=== PATIENT | female | born 1980 | race African-American/Black ===

== ENCOUNTER 2017-05-09 11:26 | Emergency (ER) | payer MEDICAID, SELFPAY | END 2017-05-09 15:43 | disposition home or self-care (01) | PROVIDERS: Emergency Provider Emergency Medicine; Family Provider Nurse Practitioner Family; Visit Provider Emergency Medicine | DX: J11.1 Influenza due to unidentified influenza virus with other respiratory manifestations (principal); F17.210 Nicotine dependence, cigarettes, uncomplicated; I10 Essential (primary) hypertension; Z79.899 Other long term (current) drug therapy | CPT/HCPCS: 36415; 71020; 80053; 84484; 85025; 87070; 87430; 87486; 87581; 87633; 87798; 93005; 93041; 99283 ==

== ENCOUNTER → 2017-08-09 08:51 | Outpatient (CLI) | payer MEDICAID, SELFPAY ==
[2017-08-09 09:24] LABS: Basophils % 0.3 % (0.1-2.0); Eosinophils # 0.2 K/mm3 (0.0-0.4); Hematocrit 44.3 % (37.0-47.0); Hemoglobin 14.2 g/dL (12.2-16.2); Lymphocytes % 34.5 K/mm3 (10-50); Mean Corpuscular HGB Conc 32.1 g/dL (31.8-35.4); Mean Corpuscular Hemoglobin 29.1 pg (27.0-31.2); Mean Corpuscular Volume 90.6 fl (81-99); Mean Platelet Volume 8.7 fl (7.4-10.4); Monocytes # 0.2 K/mm3 (0.1-1.0); Monocytes % 4.2 % (1.7-9.3); Neutrophils # 3.4 K/mm3 (1.8-7.8); Neutrophils % 58.1 % (37.0-80.0); Platelet Count 225 K/mm3 (142-424); Red Blood Count 4.89 M/mm3 (4.20-5.40); Red Cell Distribution Width 14.1 % (11.5-17.5); White Blood Count 5.8 K/mm3 (4.8-10.8)
[2017-08-09 09:45] LABS: Anion Gap 11.3 mEq/L (5-15); Blood Urea Nitrogen 12 mg/dL (7-18); Carbon Dioxide 26 mmol/L (21.0-32.0); Chloride 107 mmol/L (98-107); Creatinine,Serum 0.76 mg/dL (0.55-1.02); Estimated Glomerular Filt Rate 86 ml/min (>60); Free Thyroxine Index 2.7 ug/dL (5.93-13.13); GFR (African American) 104 ML/MIN (>60); Glucose 95 mg/dL (74-106); Potassium 3.3 mmoL/L (3.5-5.1); Sodium 141 mmol/L (136-145); T4 (Thyroxine) 7.8 ug/dl (4.7-13.3); Thyroid Stimulating Hormone 2.11 uIU/ml (0.358-3.740); Triiodothryronine (T3) Uptake 35 % (31-39)
[2017-08-11 09:28] LABS: FSH 7.4 mIU/mL (.); LH 6.3 mIU/mL (.)
== END ==
PROVIDERS: Family Provider Nurse Practitioner Family; PCP Nurse Practitioner Family; Visit Provider Nurse Practitioner Obstetrics & Gynecology
DX: N93.9 Abnormal uterine and vaginal bleeding, unspecified (principal)
CPT/HCPCS: 36415; 80048; 83001; 83002; 84436; 84443; 84479; 85025

== ENCOUNTER → 2017-08-12 10:28 | Outpatient (CLI) | payer MEDICAID, SELFPAY ==
--- NOTE | 2017-08-12 10:30 | US_ITS ---
US transvaginal HISTORY: ITS.REASON: Abnormal Vaginal Bleeding ORDERING PHYSICIAN: Quan Dahl MD PATIENT AGE: 37 years COMPARISON: None FINDINGS: The uterus is retroverted measuring 8 x 5 x 6 cm with a combined endometrial thickness of 12 mm. There is a small amount of fluid within the uterine canal. The left ovary is 3.3 x 1.6 x 2.3 cm and contains multiple small follicles. The right ovary is 3 x 2 cm and contains multiple small follicles. There are bilateral Essure devices noted in the cornu of the uterus. Small amount fluid is present in the cul-de-sac. IMPRESSION: 1. Retroverted uterus with mildly thickened endometrium and a small amount of fluid in the endometrial canal 2. Bilateral Essure devices noted. 3. Small amount fluid in the cul-de-sac
== END ==
PROVIDERS: Family Provider Nurse Practitioner Family; PCP Nurse Practitioner Family; Visit Provider Nurse Practitioner Obstetrics & Gynecology
DX: N92.6 Irregular menstruation, unspecified (principal)
CPT/HCPCS: 76830

== ENCOUNTER → 2018-05-02 13:43 | Outpatient (CLI) | payer MEDICAID, SELFPAY ==
--- NOTE | 2018-05-02 | CA_ITS ---
PROCEDURE: 2-D M-mode and color Doppler study INDICATIONS FOR THE TEST: Chest pain+ COPD Heart Murmur Tobacco Smoking+ Palpitations+ Fatigue+ Syncope Edema+ Hypertension+Diabetes Mellitus Rheumatic Fever SOB MCMILLAN+Obesity Hyperlipidemia Family History HD+ Additional History family history of CAD, sister at 42 from CHF PATIENT INFORMATION HEIGHT: 64 WEIGHT: 155 GENDER: Female B/P: 122/90 2-D/M-MODE INTERPRETATION: 2-D MEASUREMENTS OBSERVED VALUES IN CMS Right Ventricular Dimension (RVDd) 2.0 Interventricular Septum (Thickness)(IVsd) 0.7 Left Ventricular Internal Dimensions(LVIDd) 4.4 Left Ventricular Posterior Wall (Thickness)(LVPWd) 0.7 Aortic Root 2.7 Aortic Cusp Separation 2.0 Left Atrial Dimensions (LAD) 2.4 2D 1. Left atrium is normal size, left ventricle is normal size, there is no concentric left ventricular hypertrophy, visually estimated ejection fraction 55% with no regional wall motion abnormality. 2. The right atrium and right ventricle are normal size and contractility. 3. The aortic, mitral and tricuspid valvular grossly normal. 4. The pulmonic valve is poorly visualized. 5. No significant pericardial effusion noted. DOPPLER INTERROGATION: Doppler interrogation of the aortic, mitral and tricuspid valvular presence of mild mitral and tricuspid regurgitation, tricuspid regurgitation jet velocity is inadequate for calculation of the right ventricular systolic pressure, diastolic parameters are within normal range. CONCLUSION: 1. Normal left ventricular size, preserved left ventricular systolic function, visually estimated ejection 5% with no regional wall motion abnormality, diastolic parameters are within normal range. 2. Mild mitral and tricuspid regurgitation 3. No significant pericardial effusion noted.
== END ==
PROVIDERS: PCP Internal Medicine Adolescent Medicine; Visit Provider Nurse Practitioner Family
DX: I10 Essential (primary) hypertension (principal); Z72.0 Tobacco use; Z82.49 Family history of ischemic heart disease and other diseases of the circulatory system
CPT/HCPCS: 93306

== ENCOUNTER 2018-05-29 06:27 | Observation (INO) ==
--- NOTE | 2018-05-29 07:33 | Progress Note ---
[facility] Anesthesia Checklist - Structural Data Admitted From: Home Planned Operative Procedure/s: [facility] Consent for Planned Operative Procedure(s) Verified: Yes - Airway Assessment C-Spine Mobility Assessed: Yes TMJ Mobility Assessed: Yes Dentition: Good Dentition - Neurological Assessment Level of Consciousness: Awake, Alert, Appropriate - Anesthesia Plan Anesthesia Risk discussed: Yes Anesthesia Plan: Verified ASA Class: II Anesthesia Type: General [facility] History I have reviewed the patient's past medical history: Yes Medical History: Reports:: Hypertension, Migraine, Seizures (10 YEARS AGO) Denies:: Anxiety, Asthma, Cancer, Depression, Diabetes Mellitus Type 1, Diabetes Mellitus Type 2, Internal Pacemaker, MRSA Other Medical History: Denies: Blood Transfusion Reaction Other Surgeries: Yes: Tubal Ligation. No: Pacemaker Amputation: No Fractures: No - *Social History Educational Level: Attended College Smoking Status: Former smoker Tobacco Type: cigarettes Alcohol Intake: never Alcohol Intake Frequency:: holidays/special occasions only Substance Use Type: denies use Occupational Status: employed Housing: house Household Members: children - Psychiatric History Expresses thoughts of harming self/others: None Suicide Plan Description: No Plan Pschychiatric History:: Denies:: Anxiety, Depression *Family Hx:: Cancer, Diabetes, Heart Attack, Stroke, Hypertension, Hyperlipidemia, Anemia
[2018-05-29 07:43] LABS: Basophils % 0.3 % (0.1-2.0); Eosinophils # 0.2 K/mm3 (0.0-0.4); Eosinophils % 3.5 % (0.1-12.0); Hemoglobin 14.8 g/dL (12.2-16.2); Lymphocytes % 46.5 % (10-50); Mean Corpuscular HGB Conc 31.6 g/dL (31.8-35.4); Mean Corpuscular Hemoglobin 28.9 pg (27.0-31.2); Mean Corpuscular Volume 91.5 fl (81-99); Mean Platelet Volume 8.2 fl (7.4-10.4); Monocytes # 0.3 K/mm3 (0.1-1.0); Monocytes % 5.2 % (1.7-9.3); Neutrophils # 2.9 K/mm3 (1.8-7.8); Neutrophils % 44.5 % (37.0-80.0); Platelet Count 266 K/mm3 (142-424); Red Blood Count 5.13 M/mm3 (4.20-5.40); Red Cell Distribution Width 13.5 % (11.5-17.5); White Blood Count 6.5 K/mm3 (4.8-10.8)
[2018-05-29 08:00] LABS: Albumin Level 3.7 gm/dL (3.4-5.0); Anion Gap 14.8 mEq/L (5-15); Bilirubin,Total 0.4 mg/dL (0.2-1.0); Calcium 8.9 mg/dL (8.5-10.1); Globulin 3.8 gm/dl (1.3-3.2); Potassium 3.8 mmoL/L (3.5-5.1); Total Protein,Serum 7.5 gm/dL (6.4-8.2)
--- NOTE | 2018-05-29 11:09 | Progress Note ---
[facility] Anesthesia Record Part II Discharge Time: 11:40 Destination: floor PACU nurse assessment reviewed?: Yes Patient Condition:: Good Anesthesia Complications:: None
--- NOTE | 2018-05-29 11:09 | Progress Note ---
[facility] Anesthesia Record Part I Intake, IV Amount: 2,200 Estimated blood loss (mL): 200 Urine output (mL): 125 Blood Pressure: 111/65 SaO2: 100 Pulse Rate: 60 Respiratory Rate: 12 Temperature: 98.6 F Patient is:: Awake, Stable Stable to PACU at:: 11:10
[2018-05-30 07:27] LABS: Hematocrit 34.7 % (37.0-47.0)
[2018-05-30 07:37] LABS: Hemoglobin 11.5 g/dL (12.2-16.2)
--- NOTE | 2018-05-30 09:06 | Pharmacy Consult Notes ---
[facility] Pharmacy VTE Monitoring - Patient Demographics Admission date: 05/30/18 Report Date: 05/30/18 Time: 09:06 Allergies/Adverse Reactions: Patient Allergies No Known Allergies Allergy (Verified 05/29/18 07:00) Height: 1.65 m Weight: 69.853 kg - VTE Risk Labs: VTE Related Lab Results Hgb 11.5 g/dL (12.2-16.2) L D 05/30/18 06:20 Hct 34.7 % (37.0-47.0) L 05/30/18 06:20 Plt Count 266 K/mm3 (142-424) 05/29/18 07:09 BUN 17 mg/dL (7-18) 05/29/18 07:09 Creatinine 0.87 mg/dL (0.55-1.02) 05/29/18 07:09 Estimated Creat Clear 99 mL/min (50-200) 05/29/18 07:09 Clinical Trial Participant: No - Prophylaxis VTE Prophylaxis Ordered?: Yes Types of VTE Prophylaxis: IPCS Knee High
--- NOTE | 2018-05-30 09:37 | Discharge Summary ---
General - General Admission date:: 05/29/18 Discharge date: 05/30/18 HPI HPI: HMB, DUB and pelvic pain, admitted for surgical management with LAVH Postop course uneventful Yannick regular diet, ambulating and voiding without difficulty Discharged home on POD #1 Hospital Course Hospital Course: as per HPI Rhogam Administration: Not Indicated Objective Vital signs: Temp Pulse Resp BP Pulse Ox 98.3 F 76 18 98/75 L 100 05/30/18 08:10 05/30/18 08:10 05/30/18 08:10 05/30/18 08:10 05/30/18 08:10 Narrative: CONSTITUTIONAL: no acute distress HEENT: mucous membranes moist PULMONARY: breathing unlabored without audible wheezes CV: no tachycardia or visible JVD; normal LE peripheral pulses ABD: soft, NT/ND, no guarding SKIN: incisions dry/intact with no drainage, erythema or induration EXT: 1+ edema LEs NEURO: alert/oriented, no altered mental status PSYCH: appropriate mood and demeanor without visible anxiety/depression Results Labs on day of discharge: Labs from last 24 hours 05/30/18 05/29/18 06:20 Unknown Hgb 11.5 L D Hct 34.7 L Urine Color Yellow Urine Appearance Sl cloudy Urine pH 6.0 Ur Specific [place] 1.020 Urine Protein Negative Urine Glucose (UA) Negative Urine Ketones Negative Urine Blood Trace-l Urine Nitrate Negative Urine Bilirubin Negative Urine Urobilinogen 0.2 Ur Leukocyte Esterase Negative Urine RBC Occasional Urine WBC Occasional Ur Squamous Epith Cells 3-5 Urine Bacteria 3+ A DS: Diagnosis - Discharge Diagnosis (1) Abnormal uterine bleeding Status: Acute (2) Heavy menstrual bleeding Status: Acute (3) Severe dysmenorrhea Status: Acute Discharge Plan - Patient Discharge Instructions ACTIVITY: Limited activity Additional Instructions: No heavy lifting, no driving while on pain medication and nothing in the vagina for 6 weeks. Patient Instructions: How to Care for a Surgical Wound, DI for Postoperative Pain, Hysterectomy -- Laparoscopic Surgery - Follow up Plan Follow up with: Angelica Rebollar MD [Staff Physician] - 2 weeks Disposition: Home, Self-Group Home Medications: Home Medications Medication Instructions Recorded Confirmed Type bisoprolol 5 5 - 6.25 mg PO BID 30 Days #30 08/17/17 05/29/18 History mg-hydrochlorothiazide 6.25 mg tablet cetirizine 10 mg tablet 1 tab PO DAILY 30 Days #30 08/17/17 05/29/18 History fluticasone 50 mcg/actuation nasal 1 spray INTRANASAL DAILY 30 Days 08/17/17 05/30/18 History spray,suspension #16 triamcinolone acetonide 0.1 % 1 cream TOPICAL TID 14 Days #80 08/17/17 05/29/18 History topical ointment Etonogestrel [Nexplanon] 1 implant SUBDERMAL ONCE 05/29/18 05/29/18 History Lisinopril [Lisinopril 20mg Tab] 20 mg PO DAILY 05/29/18 05/29/18 History hydroCHLOROthiazide [HCTZ 25mg 25 mg PO DAILY 05/29/18 05/29/18 History tab] Amlodipine Besylate 5 mg PO DAILY 05/30/18 05/30/18 History Oxycodone HCl [OxyIR 5mg tablet] 5 mg PO Q4HP PRN #30 tab 05/30/18 Rx Prescriptions/Medication Reconciliation: New Oxycodone HCl [OxyIR 5mg tablet] 5 mg PO Q4HP PRN #30 tab PRN Reason: MODERATE TO SEVERE PAIN Continue triamcinolone acetonide 0.1 % topical ointment 1 cream TOPICAL TID 14 Days #80 bisoprolol 5 mg-hydrochlorothiazide 6.25 mg tablet 5 - 6.25 mg PO BID 30 Days #30 fluticasone 50 mcg/actuation nasal spray,suspension 1 spray INTRANASAL DAILY 30 Days #16 cetirizine 10 mg tablet 1 tab PO DAILY 30 Days #30 Lisinopril [Lisinopril 20mg Tab] 20 mg PO DAILY Amlodipine Besylate 5 mg PO DAILY hydroCHLOROthiazide [HCTZ 25mg tab] 25 mg PO DAILY Etonogestrel [Nexplanon] 1 implant SUBDERMAL ONCE
--- NOTE | 2018-05-31 18:03 | Operative Note ---
Date of procedure: 05/29/18 Pre-op Diagnosis:: 1. HMB 2. DUB 3. Pelvic pain 4. Failed endometrial ablation 5. Previous Essure Post-op Diagnosis:: 1. HMB 2. DUB 3. Pelvic pain 4. Failed endometrial ablation 5. Previous Essure Procedure performed:: SHANNON Surgeon:: Angelica Rebollar MD [place]anning Solution Maker(s):: Quan Dahl MD Anesthesia: GETA Estimated blood loss (mL): 200 Operative findings:: grossly normal ovaries bilaterally grossly normal uterus filshie clips x 2 bilateral fallopian tubes Operative note:: The patient was taken to the operating room and general anesthesia was administered. She was prepped/draped in lithotomy position. A uterine manipulator was placed without difficulty. Gloves were changed and attention was turned to the abdomen. A 11mm skin incision was made in the umbilical fold and the verees needle was inserted through the peritoneum and into the abdominal cavity in standard fashion. The abdomen was insufflated with CO2 gas. A 11mm non-bladed trocar was inserted directly into the abdominal cavity and appropriate placement was confirmed with the laparoscope. No intra-abdominal injuries occurred during entry into the abdominal cavity, as confirmed visually with the laparoscope. The patient was placed in trendelenburg and a 5mm skin incision was made 2cm above the pubic symphysis. A 5 mm non-bladed trocar was inserted under direct visualization, without complication. The uterus was elevated out of the pelvis in order to better visualize the anatomy. A survey of the pelvis and abdomen revealed the findings noted above. 5mm skin incisions were made in the right and left lower quadrants and a non-bladed trocars were inserted under direct visualization, without complication. The pelvis was evaluated; no fibroids or other visible uterine lesions were noted. Ovaries appeared normal and previous filshie clips were present on both tubes. The round ligaments were taken down using the harmonic scalpel. The anterior lip of the broad ligament was dissected medially on both sides and the bladder flap was created digitally. The posterior leaf of the broad ligament was dissected until the ureters were able to be identified on either side and noted to be free of the forthcoming adnexal pedicles. Infundibulopelvic ligaments were taken down with the harmonic scalpel, with excellent hemostasis noted. The uterine arteries were skeletonized on either side and taken down with the harmonic scalpel, with excellent hemostasis. The bladder flap was further bluntly dissected off the lower uterine segment with excellent hemostasis and without injury to the bladder. At this time, attention was turned to the vagina and the humi was removed. The cervix was injected superficially circumferentially with 1% lidocaine with epinephrine (15cc). The posterior cul-de-sac was entered without complication, and the anterior space was also entered without injury to the bladder. The cardinal and uterosacral ligaments were clamped transected and suture ligated on both sides until the specimen was free and removed vaginally. The posterior vaginal cuff was reapproximated for hemostasis. The pelvic peritoneum was closed with 2-0 PDS. The vaginal cuff was closed with 0 Vicryl interrupted sutures. Gloves were changed and attention was turned back to the laparoscopy. The abdomen was reinsufflated and the pelvis was assessed. All pedicles appeared hemostatic. The pelvis was copiously irrigated with a solution of sterile water. The cuff was hemostatic. All pedicles were reexamined and remained hemostatic. The abdomen was then evacuated of gas and all trocars removed. The skin incisions were closed with 4-0 monocryl and dermabond. The patient tolerated the procedure well; sponge/lap/needle and instrument counts were correct 2. She was taken to the recovery room awake in stable condition. Estimated blood loss: 200 cc. Condition: stable Disposition: PACU Specimens:: Uterus and cervix Complications:: none
== END 2018-05-30 10:25 | disposition home or self-care (01) ==
LOC: OR 06:27 → OB 12:09 → INTOOBSV 12:09
PROVIDERS: ADMIT Obstetrics & Gynecology; ATTEND Obstetrics & Gynecology
CPT/HCPCS: 36415; 80053; 81001; 84703; 85014; 85018; 85025; 87086; 96374; G0378; J0131; J2405; J2710

== ENCOUNTER 2022-02-10 08:48 | Emergency (ER) | payer OTHER, SELFPAY ==
[2022-02-10 09:05] VITALS: BP 131/87; PULSE 100; RESP 20; TEMP 37.6; O2SAT 100; BMI 28.4
[2022-02-10 09:20] VITALS: BP 131/87; PULSE 100; RESP 20; TEMP 37.6; O2SAT 100
--- NOTE | 2022-02-10 09:21 | EXP.UTC ---
Discharge Plan Disposition Patient Disposition: Home, Self-Care Condition: Good Prescriptions Prescriptions: New azithromycin [Zithromax Z-Benji] 250 mg tablet See Rx Instructions .ROUTE .COMPLEX 5 Days Qty: 6 0RF Rx Instructions: For 250 mg dose pack: take 500 mg today (day 1), then 250 mg for 4 days (days 2-5) No Action triamcinolone acetonide 0.1 % ointment 1 cream TOPICAL TID 14 Days Qty: 80 Label Comments: bisoprolol-hydrochlorothiazide 5-6.25 mg tablet 5 - 6.25 mg PO BID 30 Days Qty: 30 Label Comments: cetirizine 10 mg tablet 1 tab PO DAILY 30 Days Qty: 30 Label Comments: fluticasone propionate 50 mcg/actuation spray,suspension 1 spray INTRANASAL DAILY 30 Days Qty: 16 Label Comments: hydrochlorothiazide 25 MG tablet 25 mg PO DAILY Referrals Follow up/Referrals: Adán Perez MD [Primary Care Provider] - See instructions Clinical Impressions Clinical Impression: URI (upper respiratory infection) Stand Alone Forms Stand Alone Forms: Work/School Release Discharge ED Provider: Georgiana Silva [facility] General Stated complaint: LEZAMA, congestion, body aches, chills Mode of Arrival: Ambulatory Source of Information: Patient Limitations: No Limitations Time Seen by Provider: 02/10/22 09:21 Description of Symptoms (Recalled from Triage Doc. by RN): PATIENT C/O BODY ACHES, HEADACHE, CHILLS, AND HEAD CONGESTION X 2 DAYS. REPORTS EXPOSURE TO COVID AND A POSITIVE AT HOME COVID TEST HEENT Symptoms (Recalled from RN notes): Yes Resp Symptoms (Recalled from RN notes): No Skin Symptoms (Recalled from RN notes): No MS Symptoms (Recalled from RN notes): No Functional Status (Recalled from RN notes): WNL History of Present Illness Provider Complaint: Patient states that she has been having sinus pain and pressure for close to a week that got worse over the last couple of days States it has got worse States that she is having sinus pain and pressure, body aches, headache and chills States that today she took a home COVID test and thinks she may have seen a faint line Related Data Home Medications Medication Instructions Recorded Confirmed bisoprolol 5 5 - 6.25 mg PO BID BLOOD PRESSURE 08/17/17 08/04/20 mg-hydrochlorothiazide 6.25 mg 30 days ##30 tablet cetirizine 10 mg tablet 1 tab PO DAILY Allergy symptoms 30 08/17/17 08/04/20 days ##30 fluticasone propionate 50 1 spray intranasal DAILY Allergy 08/17/17 08/04/20 mcg/actuation nasal symptoms 30 days ##16 spray,suspension triamcinolone acetonide 0.1 % 1 cream topical TID RASH 14 days 08/17/17 08/04/20 topical ointment ##80 hydrochlorothiazide 25 mg tablet 25 mg PO DAILY BLOOD PRESSURE 05/29/18 08/04/20 Previous Rx's Medication Instructions Recorded azithromycin 250 mg tablet See Rx Instructions PO .COMPLEX 5 02/10/22 (Zithromax Z-Benji) days #6 tabs Allergies Allergy/AdvReac Type Severity Reaction Status Date / Time No Known Allergies Allergy Verified 08/04/20 14:55 Worker's Comp Is this a Worker's Comp case?: No [facility] Medical History (Updated 02/10/22 @ 09:26 by Georgiana Silva APRN) History of anemia Hypertension Migraine Seizure disorder Surgical History (Updated 02/10/22 @ 09:16 by Lila Lau RN) History of cholecystectomy History of hysterectomy History of tubal ligation Social History (Updated 02/10/22 @ 09:16 by Lila Lau RN) Smoking Status: Current every day smoker tobacco type: cigarettes alcohol intake: current substance use type: denies use current occupational status: employed Travel in the last 8 weeks: None household members: children housing: house current occupational exposures/hazards: No caffeine: Yes ROS Obtained: Yes All systems reviewed & no additional complaints except as documented and Yes Systems reviewed as appropriate & no additional complaints except as documented Constituti
== END 2022-02-10 09:36 | disposition home or self-care (01) ==
PROVIDERS: Emergency Provider Nurse Practitioner; PCP Internal Medicine Adolescent Medicine
DX: J06.9 Acute upper respiratory infection, unspecified (principal); R51.9 Headache, unspecified; R09.81 Nasal congestion; M79.10 Myalgia, unspecified site; Z20.822 Contact with and (suspected) exposure to COVID-19
CPT/HCPCS: 99212; C9803; G0463; U0003; U0005

== ENCOUNTER 2024-04-20 10:34 | Outpatient (CLI) | payer BC, SELFPAY ==
--- NOTE | 2024-04-20 10:37 | MM_ITS ---
PROCEDURE INFORMATION: Exam: MG Bilateral Screening 3D Mammography Exam date and time: 04/20/2024 10:39 AM Age: 43 years old Clinical indication: Screening examination. A paternal great aunt had breast cancer. TECHNIQUE: Imaging protocol: Bilateral Screening tomosynthesis and 2D mammography including computer-aided detection (CAD) when performed. COMPARISON: No relevant prior studies available.If prior mammograms are provided, I am happy to add an addendum. FINDINGS: MAMMOGRAPHY: Breast composition: The breasts are extremely dense, which lowers the sensitivity of mammography. Mass: None. Architectural distortion: None. Calcifications: No suspicious calcifications. Asymmetric density: None. Skin thickening: None. Axillary adenopathy: None. IMPRESSION: No mammographic evidence of malignancy. Annual screening is recommended unless otherwise clinically indicated. ASSESSMENT: BI-RADS Category 1: Negative.
== END 2024-04-20 23:59 | disposition home or self-care (01) ==
LOC: RAD 10:34
PROVIDERS: PCP Internal Medicine Adolescent Medicine; Visit Provider Internal Medicine Adolescent Medicine
DX: Z00.00 Encounter for general adult medical examination without abnormal findings (principal); Z12.31 Encounter for screening mammogram for malignant neoplasm of breast
CPT/HCPCS: 77063; 77067

== ENCOUNTER 2025-04-12 09:11 | Outpatient (CLI) | payer BC, SELFPAY ==
[2025-04-12 09:51] LABS: Hematocrit 41.2 % (37.0-47.0); Hemoglobin 13.5 g/dL (12.2-16.2); Immature Granulocytes % 0.2 %; Mean Corpuscular HGB Conc 32.8 g/dL (31.8-35.4); Mean Corpuscular Hemoglobin 28.9 pg (27.0-31.2); Mean Corpuscular Volume 88.2 fl (81-99); Nucleated Red Blood Cells % 0 %; Platelet Count 249 K/mm3 (142-424); Red Blood Count 4.67 M/mm3 (4.20-5.40); Red Cell Distribution Width-SD 41.9 fL; White Blood Count 5.9 K/mm3 (4.8-10.8)
[2025-04-12 10:17] LABS: Hemoglobin A1C 5.5 % (4.0-6.0)
[2025-04-12 10:41] LABS: Alanine Aminotransferase 15 U/L (12-78); Albumin Level 4.2 g/dl (3.5-5.0); Albumin/Globulin Ratio 1.8 (1.1-1.8); Alkaline Phosphatase 59 U/L (38-126); Anion Gap 9.1 mEq/L (5-15); Aspartate Amino Transferase 26 U/L (14-36); Bilirubin,Total 0.6 mg/dl (0.2-1.3); Blood Urea Nitrogen 16 mg/dl (7-17); Calcium 9.2 mg/dl (8.4-10.2); Carbon Dioxide 26 mmol/L (22.0-30.0); Chloride 103 mmol/L (98-107); Cholesterol 167 mg/dl (140-200); Creatinine,Serum 0.80 mg/dl (0.52-1.04); Estimated Glomerular Filt Rate 78 ml/min (>60); GFR (African American) 95 ML/MIN (>60); Globulin 2.3 g/dL (1.3-3.2); Glucose 85 mg/dl (74-100); HDL Cholesterol 67 mg/dl (40-60); Potassium 4.1 mmoL/L (3.5-5.1); Sodium 134 mmol/L (136-145); Total Protein,Serum 6.5 g/dl (6.3-8.2); Triglycerides 54 mg/dl (30-150)
[2025-04-12 10:58] LABS: 25-OH Vitamin D, Total 94.5 ng/mL (30-100)
[2025-04-12 11:02] LABS: Free Thyroxine Index 2.2 ug/dL (5.93-13.13); T4 (Thyroxine) 6.4 ug/dl (5.53-11.0); Triiodothryronine (T3) Uptake 34 % (23.5-40.5)
[2025-04-12 11:16] LABS: Thyroid Stimulating Hormone 1.82 uIU/mL (0.465-4.68)
[2025-04-12 11:30] LABS: Vitamin B12 580 pg/mL (239-931)
== END 2025-04-12 23:59 | disposition home or self-care (01) ==
LOC: LAB 09:12
PROVIDERS: PCP Internal Medicine Adolescent Medicine; Visit Provider Internal Medicine Adolescent Medicine
DX: E78.5 Hyperlipidemia, unspecified (principal); E55.9 Vitamin D deficiency, unspecified; R53.81 Other malaise; R53.83 Other fatigue
CPT/HCPCS: 36415; 80053; 80061; 82306; 82607; 83036; 84436; 84443; 84479; 85025